=== PATIENT | male | born 1955 | race Caucasian/White ===

== ENCOUNTER 2017-02-08 09:40 | Inpatient (IN) | payer OTHER ==
[~2017-02-08] VITALS: Ht 193 cm; Wt 111.3 kg
[2017-02-08 10:37] LABS: BASOPHIL (%) 0.3 % (0-1); EOSINOPHIL (%) 1.4 % (0-5); EOSINOPHIL COUNT 0.1 K/uL (0-0.3); IMMATURE GRANULOCYTE (%) 0.5 % (0.0-0.7); LYMPHOCYTE (%) 18.1 % (15-42); LYMPHOCYTE COUNT 1.8 K/uL (1.0-2.8); MCH 29.9 PG (29.0-34.0); MCHC 34.1 G/DL (30.0-36.0); MCV 87.8 FL (86-99); MONOCYTE (%) 9.5 % (3-12); NEUTROPHIL (%) 70.2 % (45-76); PLATELET COUNT 185 K/uL (156-360); RBC DIS.WIDTH-CV 11.8 % (11.8-14.6); RBC DIS.WIDTH-SD 37.9 % (39-53); RED BLOOD COUNT 5.01 M/uL (4.00-5.50)
[2017-02-08 10:46] LABS: ALBUMIN 3.7 g/dL (3.2-4.8); CHLORIDE 107 mEq/L (99-109); POTASSIUM 4.6 mEq/L (3.7-5.4); SODIUM 137 mEq/L (136-147)
[2017-02-08 10:47] LABS: MAGNESIUM 2.1 mg/dL (1.3-2.7)
[2017-02-08 10:49] LABS: GLUCOSE 100 mg/dL (70-99)
[2017-02-08 10:51] LABS: TOTAL BILIRUBIN 0.8 mg/dL (0.0-1.0)
[2017-02-08 10:52] LABS: ALKALINE PHOSPHATASE 60 IU/L (3-129); CREATININE 1.2 mg/dL (0.6-1.3); GFR ESTIMATE (CALCULATED) > 59 mL/min/ (58.99-99999)
[2017-02-08 10:53] LABS: UREA NITROGEN (BUN) 15 mg/dL (9-23)
[2017-02-08 10:54] LABS: AST (GOT) 15 IU/L (2-34)
[2017-02-08 10:55] LABS: ALT (GPT) 15 IU/L (3-49)
[2017-02-08 11:00] LABS: TROP-I INTERPRETATION NEGATIVE; TROPONIN-I < 0.01 ng/mL (0.0-0.30)
[2017-02-08 11:40] LABS: INTER. NORMALIZED RATIO 1.1
[2017-02-08 11:43] LABS: PTT 26.6 SEC (25-37)
[2017-02-08] MEDS ORDERED: FENOFIBRATE160 M1 PO (12:34)
[2017-02-08] MEDS ORDERED: ASPIR-LOW81 MG PO (12:35)
[2017-02-08 15:01] VITALS: BP 119/69
[2017-02-08 16:13] LABS: TROP-I INTERPRETATION NEGATIVE; TROPONIN-I < 0.01 ng/mL (0.0-0.30)
[2017-02-08 19:00] VITALS: BP 124/82
[2017-02-09 00:05] VITALS: BP 110/59
[2017-02-09 03:20] VITALS: BP 116/70
[2017-02-09 09:00] VITALS: BP 108/73
[2017-02-09 11:33] VITALS: BP 125/60
[2017-02-09] MEDS ORDERED: XARELTO15 MG PO (12:55)
[2017-02-09 16:17] VITALS: BP 116/76
[2017-02-09 23:40] VITALS: BP 116/72
[2017-02-10 04:23] VITALS: BP 126/73
[2017-02-10 07:30] VITALS: BP 122/66
[2017-02-10 11:30] VITALS: BP 118/82
[2017-02-10] MEDS ORDERED: LOPRESSOR50 MG PO (14:59)
== END 2017-02-10 16:09 | disposition home or self-care (01) | DRG 308 ==
LOC: EME 09:40 → EDOF 12:49 → 5WEST 12:49 → EDOF 12:49 → ENRESERV 12:58 → 5WEST 14:30 → ENPENDDIS 02-10 → 5WEST 02-10 16:09
PROVIDERS: Emergency Medicine; Nurse Practitioner Family
DX: I48.91 Unspecified atrial fibrillation (principal); I26.99 Other pulmonary embolism without acute cor pulmonale; I27.20 Pulmonary hypertension, unspecified; E78.5 Hyperlipidemia, unspecified; E78.1 Pure hyperglyceridemia; Z79.82 Long term (current) use of aspirin; R51 Headache; Z86.72 Personal history of thrombophlebitis; Z82.49 Family history of ischemic heart disease and other diseases of the circulatory system; Z82.0 Family history of epilepsy and other diseases of the nervous system
CPT/HCPCS: 70450; 71275; 80053; 83735; 83880; 84484; 85025; 85610; 85730; 93005; 93306; 99281; 99285; G0378; J7040

== ENCOUNTER 2017-04-14 12:37 | Day surgery (SDC) | payer OTHER ==
[~2017-04-14] VITALS: Ht 194.9 cm; Wt 111.0 kg
[~2017-04-14 12:37] MED LIST: ASPIR-LOW81 MG PO; FENOFIBRATE160 M1 PO; LOPRESSOR50 MG PO; XARELTO15 MG PO; XARELTO20 MG PO
== END 2017-04-14 15:13 | disposition home or self-care (01) ==
LOC: CATH 12:37
PROC: 5A2204Z Restoration of Cardiac Rhythm, Single (ICD-10-PCS; principal; 2017-04-14)
DX: I48.1 Persistent atrial fibrillation (principal); Z86.718 Personal history of other venous thrombosis and embolism; E78.2 Mixed hyperlipidemia; D68.51 Activated protein C resistance; Z79.01 Long term (current) use of anticoagulants
CPT/HCPCS: 93005; J2250